=== PATIENT | male | born 1995 | race Two or more races ===

== ENCOUNTER 2023-06-26 09:51 | Emergency (ER) | payer MEDICAID, OTHER ==
[~2023-06-26] VITALS: Ht 188 cm; Wt 152.5 kg
[2023-06-26 10:40] VITALS: BP 153/99; PULSE 75; RESP 14; O2SAT 96
[2023-06-26] MEDS ORDERED: NAPR-746 PO (11:00)
[2023-06-26] MEDS ORDERED: AUG875T PO (11:00)
[2023-06-26] MEDS: cefTRIAXone SOD 1,000 MG VL IM ONE (11:26)
== END 2023-06-26 12:13 | disposition home or self-care (01) ==
LOC: ER 09:51
DX: S60.464A Insect bite (nonvenomous) of right ring finger, initial encounter (principal); Z79.899 Other long term (current) drug therapy; W57.XXXA Bitten or stung by nonvenomous insect and other nonvenomous arthropods, initial encounter; Y93.89 Activity, other specified; Y92.89 Other specified places as the place of occurrence of the external cause; Y99.8 Other external cause status
CPT/HCPCS: 96372; 99283; J0696

== ENCOUNTER 2023-12-26 05:04 | Inpatient (IN) | payer MEDICAID ==
[2023-12-26] VITALS (8 sets, daily range): BP systolic 128–145; BP diastolic 62–80; PULSE 79–95; RESP 13–20; TEMP 97.7–98.6; O2SAT 0–98
[~2023-12-26] VITALS: Ht 188 cm; Wt 150.0 kg
[~2023-12-26 05:04] MED LIST: AUG875T PO; NAPR-746 PO
[2023-12-26 06:34] LABS: Urine Bacteria None Seen /hpf (None Seen)
--- NOTE | 2023-12-26 06:48 | ED.PDOC ---
GI ASSESSMENT HPI Comments 28 y.o male with PMH of anxiety and HTN, presents to the ED for a chief complaint of lower abdominal pain associated with nausea that started today at 0400. Patient reports pain is constant, non radiating, rating an 8/10 on the pain scale but did decrease s/p urinating. Patient reports excessive consumption of soda the past couple of days with minimal water intake. Patient denies any vomiting, diarrhea, fever, chills, chest pain, SOB. Chief Complaint: Abdominal Pain Time Seen by MD: 06:22 Reviewed Notes: Nurses Notes, Medications, Allergies Allergies: Coded Allergies: NO KNOWN ALLERGIES (Unverified , 06/26/23) Home Meds Active Scripts Naproxen (Naproxen) 500 Mg Tab, 500 MG PO BIDPC for 10 Days, #20 TAB 0 Refills Prov:VERENA CLEMENTS NP 06/26/23 Amoxicillin & Pot Clavulanate (AUGMENTIN TABLET) 875 Mg Tb, 875 MG PO BID for 7 Days, #14 TAB 0 Refills Prov:VERENA CLEMENTS NP 06/26/23 Information Source: Patient Mode of Arrival: Ambulatory Timing: Hours Duration: Since onset Quality: Aching Vomitus: None Stool: Normal Severity: Moderate Recent: None Recent Hx of: None Pain Location: Suprapubic Modifying Factors: Nothing Associated sign and symptoms: Nausea, Abdominal Pain Past Medical History PAST MEDICAL HISTORY: Anxiety, HTN Surgical History: Denies all surgeries Family History Family History: Reviewed,noncontributory to illness Social History Smoker: Non-Smoker Alcohol: Denies ETOH Use Drugs: Denies Drug Use Lives In: Home Constitutional: denies: chills, diaphoresis, fatigue, fever, malaise, sweats, weakness, others EENTM: denies: blurred vision, double vision, ear bleeding, ear discharge, ear drainage, ear pain, ear ringing, eye pain, eye redness, hearing loss, mouth pain, mouth swelling, nasal discharge, nose bleeding, nose congestion, nose pain, photophobia, tearing, throat pain, throat swelling, voice changes, others Respiratory: denies: cough, hemoptysis, orthopnea, SOB at rest, shortness of breath, SOB with excertion, stridor, wheezing, others Cardiovascular: denies: chest pain, dizzy spells, diaphoresis, Dyspnea on exertion, edema, irregular heart beat, left arm pain, lightheadedness, palpitations, PND, syncope, others Gastrointestinal: reports: abdominal pain, nausea; denies: abdomen distended, blood streaked bowels, constipated, diarrhea, dysphagia, difficulty swallowing, hematemesis, melena, poor appetite, poor fluid intake, rectal bleeding, rectal pain, vomiting, others Genitourinary: denies: burning, dysuria, flank pain, frequency, hematuria, incontinence, penile discharge, penile sore, pain, testicle pain, testicle swelling, urgency, others Neurological: denies: dizziness, fainting, headache, left sided numbness, left sided weakness, numbness, paresthesia, pre-existing deficit, right sided numbness, right sided weakness, seizure, speech problems, tingling, tremors, weakness, others Musculoskeletal: denies: back pain, gout, joint pain, joint swelling, muscle pain, muscle stiffness, neck pain, others Integumetry: denies: bruises, change in color, change in hair/nails, dryness, laceration, lesions, lumps, rash, wounds, others Allergic/Immunocompromised: denies: Difficulty Healing, Frequent Infections, Hives, Itching, others Hematologic/Lymphatic: denies: anemia, blood clots, easy bleeding, easy bruising, swollen glands, others Endocrine: denies: excessive hunger, excessive sweating, excessive thirst, excessive urination, flushing, intolerance to cold, intolerance to heat, unexplained weight gain, unexplained weight loss, others Psychiatric: denies: anxiety, bipolar disorder, depression, hopeless, panic disorder, schizophrenia, sleepless, suicidal, others All Other Systems: Reviewed and Negative Physical Exam General Appearance: Moderate Distress, Obese HEENT: Normal ENT Inspection, Pharynx Normal, TMs Normal Neck: Full Range of Motion, Non-Tender, Normal, Normal Inspection Respiratory: Chest Non-Tender, Lungs Clear, No Accessory Muscle Use, No Respiratory Distress, Normal Breath Sounds Cardiovascular: No Edema, No JVD, No Murmur, No Gallop, Normal Peripheral Pulses, Regular Rate/Rhythm Breast Exam: Deferred Gastrointestinal: No Organomegaly, Non Tender, No Pulsatile Mass, Normal Bowel Sounds, Soft Genitalia: Deferred Pelvic: Deferred Rectal: Deferred Extremities: No calf tenderness, Normal capillary refill, Normal inspection, Normal range of motion, Non-tender, No pedal edema Musculoskeletal : Apperance: Normal Neurologic: Alert, leasing assistant II-XII nml as Tested, No Motor Deficits, Normal Affect, Normal Mood, No Sensory Deficits Cerebellar Function: Normal Reflexes: Normal Skin: Dry, Normal Color, Warm Peripheral Pulses: 3+ Radial (R), 3+ Radial (L) Lymphatic: No Adenopathy Was a procedure done? Was a procedure done?: No GI differential Dx Differential Diagnosis: Constipation, Diverticular disease, Esophagitis, Gastritis/PUD, Gastroenteritis, UTI, Dehydration, Food Poisoning, Bacterial, Viral, Kidney Stone X-Ray, Labs, Meds, VS Vital Signs Date Time Temp Pulse Resp B/P (MAP) Pulse Ox O2 Delivery O2 Flow Rate FiO2 12/26/23 07:59 98.8 91 18 157/116 (130) 98 98.8 12/26/23 07:16 80 20 0 Room Air* 0 21 12/26/23 06:49 100.2 102 18 157/88 (111) 98 100.2 12/26/23 05:15 99.8 92 18 158/106 (123) 98 Lab Test 12/26/23 07:25 12/26/23 05:18 Range/Units White Blood Count 17.5 H 4.4-10.8 10^3/uL Red Blood Count 5.25 4.5-5.90 10^6/uL Hemoglobin 14.3 13.5-17.5 g/dL Hematocrit 43.5 41.0-53.0 % Mean Corpuscular Volume 82.9 80.0-100.0 fL Mean Corpuscular Hemoglobin 27.3 L 28.0-32.0 pg Mean Corpuscular Hemoglobin Concent 32.9 32.0-36.0 g/dL Red Cell Distribution Width 13.1 11.8-14.3 % Platelet Count 317 140-450 10^3/uL Mean Platelet Volume 8.4 6.9-10.8 fL Neutrophils (%) (Auto) 84.2 H 37.0-80.0 % Lymphocytes (%) (Auto) 8.5 L 10.0-50.0 % Monocytes (%) (Auto) 6.7 0.0-12.0 % Eosinophils (%) (Auto) 0.5 0.0-7.0 % Basophils (%) (Auto) 0.1 0.0-2.0 % Neutrophils # (Auto) 14.7 H 1.6-8.6 10 ^3/uL Lymphocytes # (Auto) 1.5 0.4-5.4 10 ^3/uL Monocytes # (Auto) 1.2 0-1.3 10 ^3/uL Eosinophils # (Auto) 0.1 0-0.8 10 ^3/uL Basophils # (Auto) 0 0-0.2 10 ^3/uL Nucleated Red Blood Cells 0.0 % Sodium Level 140 136-145 mmol/L Potassium Level 4.4 3.5-5.1 mmol/L Chloride Level Pending Carbon Dioxide Level 23 20-31 mmol/L Anion Gap Pending Blood Urea Nitrogen 11 9-23 mg/dL Creatinine 1.11 0.700-1.30 mg/dL Glomerular Filtration Rate Calc 93 >90 mL/min BUN/Creatinine Ratio 9.9 L 10.0-20.0 Serum Glucose 131 H 74-106 mg/dL Calcium Level 10.0 8.7-10.4 mg/dL Urine Color Light-yellow Yellow Urine Clarity Clear Clear Urine pH 5.0 5.0-9.0 Urine Specific [place] 1.019 1.001-1.035 Urine Protein Negative Negative Urine Ketones Negative Negative Urine Blood Negative Negative /uL Urine Nitrite Negative Negative Urine Bilirubin Negative Negative Urine Urobilinogen Normal Negative mg/dL Urine Leukocyte Esterase Negative Negative /uL Urine RBC 1 0 - 3 /hpf Urine WBC <1 0 - 3 /hpf Urine Squamous Epithelial Cells Few <5 /hpf Urine Bacteria None seen None Seen /hpf Urine Glucose Normal Normal mg/dL Current Medications Medications (Trade) Dose Ordered Sig/[facility] Route Start Time Stop Time Status Last Admin Ketorolac Tromethamine (Toradol Injection) 60 mg ONCE ONCE IM 12/26/23 06:45 12/26/23 06:46 DC 12/26/23 06:49 Sodium Chloride 1,000 ml @ 1,000 mls/hr Q1H ONCE IV 12/26/23 07:15 12/26/23 08:14 DC 12/26/23 07:28 Patient alert. Came in because abdominal pain. He has fever. Blood pressure elevated. He is taking his medications. Tachycardia. Establish intravenous access. Was given fluids. Possible colitis. Abdomen is soft. Unable to get a good physical examination. Reviewed his history. Explained to the patient. Continue cardiac monitoring. CT scan of the abdomen reviewed does show appendicitis. Was given cefazolin. Was given Flagyl. Was given pain medication. X-Ray, Labs, Meds, VS Comment Exam: CT CT AB PEL WO CON-NO ORAL OR IV History: LOWER ABDOMINAL PAIN, POSS URINARY RETENTION Comparison Study: None available at time of dictation. TECHNIQUE: Multidetector CT of the abdomen was performed from lung bases to pubic symphysis. Imaging was performed without IV contrast. Axial, coronal and sagittal multiplanar reformats were obtained from the axial data set by the technologist. Radiation Dose Information: CT Dose: CTDI volume is 25 mGy. Dose-length product is 250 mGy*cm FINDINGS: Evaluation of solid organs is limited due to lack of intravenous contrast use. Findings: Lung Bases: No acute or significant lung base finding. Normal heart size. No pleural or pericardial effusion. Liver: The liver is normal in size. No focal lesions. Gallbladder and Biliary Tree: Unremarkable Spleen: Unremarkable Pancreas: The pancreas is grossly normal in appearance. Adrenal Glands: Unremarkable Kidneys: Kidneys are grossly normal without calculi or hydronephrosis. Bladder: Grossly unremarkable for degree of distention. Bowel: The stomach is grossly normal in appearance. Small bowel and colon are normal in caliber and distribution. Appendix measures 14 mm extending from the right lower quadrant past the midline and terminating in the left lower quadrant. Findings compatible with acute appendicitis. There is a punctate appendicolith present. Ascites: Absent Lymphadenopathy: No mesenteric, retroperitoneal or periportal lymphadenopathy. Abdominal Wall and Mesentery: Unremarkable. Vasculature: The visualized abdominal aorta is normal in size and caliber. Evaluation of abdominal and pelvic vessels is limited due to lack of intravenous contrast. Pelvic Organs: Unremarkable Musculoskeletal: No aggressive focal bony lesions, acute fractures or dislocation. Soft tissues: Unremarkable IMPRESSION: Appendix measures 14 mm extending from the right lower quadrant past the midline and terminating in the left lower quadrant. Findings compatible with acute appendicitis. There is a punctate appendicolith present. Time of 1ST Reevaluation: 06:45 Reevaluation 1ST: Unchanged Patient Education/Counseling: Diagnosis, Treatment, Prognosis Family Education/Counseling: No Family Present Departure 1 Departure Time of Disposition: 07:03 Impression: Primary Impression: Acute appendicitis Qualified Codes: K35.80 - Unspecified acute appendicitis Additional Impression: Sepsis Qualified Codes: A41.9 - Sepsis, unspecified organism Disposition: ADMITTED INPATIENT Admit to: Med Surg Condition: Guarded Critical Care Note Critical Care Time?: Yes (90 min-critical care time only) Stability Stability form required: No I personally scribed for MONIQUE REYNOLDS MD ([email or web address]) on 12/26/23 at 06:48. Electronically submitted by Elizabeth Caballero ([facility]). I personally scribed for MONIQUE REYNOLDS MD ([email or web address]) on 12/26/23 at 09:02. Electronically submitted by Elizabeth Caballero ([facility]). MONIQUE REYNOLDS MD Dec 26, 2023 06:48
[2023-12-26] MEDS: KETOROLAC TROMETH 60MG/2ML VIAL IM ONE (06:49)
[2023-12-26 06:57] LABS: Urine Blood Negative /uL (Negative); Urine Clarity Clear (Clear); Urine Color Light-Yellow (Yellow); Urine Protein, UAD Negative (Negative); Urine Specific Gravity 1.019 (1.001-1.035); Urine Urobilinogen Normal (Negative); Urine WBC <1 /hpf (0 - 3)
--- NOTE | 2023-12-26 07:12 | DVH ---
Exam: CT CT AB PEL WO CON-NO ORAL OR IV History: LOWER ABDOMINAL PAIN, POSS URINARY RETENTION Comparison Study: None available at time of dictation. TECHNIQUE: Multidetector CT of the abdomen was performed from lung bases to pubic symphysis. Imaging was performed without IV contrast. Axial, coronal and sagittal multiplanar reformats were obtained fr om the axial data set by the technologist. Radiation Dose Information: CT Dose: CTDI volume is 25 mGy. Dose-length product is 250 mGy*cm FINDINGS: Evaluation of solid organs is limited due to lack of intravenous contrast use. Findings: Lung Bases: No acute or significant lung base finding. Normal heart size. No pleural or pericardial effusion. Liver: The liver is normal in size. No focal lesions. Gallbladder and Biliary Tree: Unremarkable Spleen: Unremarkable Pancreas: The pancreas is grossly normal in appearance. Adrenal Glands: Unremarkable Kidneys: Kidneys are grossly normal without calculi or hydronephrosis. Bladder: Grossly unremarkable for degree of distention. Bowel: The stomach is grossly normal in appearance. Small bowel and colon are normal in caliber and d istribution. Appendix measures 14 mm extending from the right lower quadrant past the midline and te rminating in the left lower quadrant. Findings compatible with acute appendicitis. There is a puncta te appendicolith present. Ascites: Absent Lymphadenopathy: No mesenteric, retroperitoneal or periportal lymphadenopathy. Abdominal Wall and Mesentery: Unremarkable. Vasculature: The visualized abdominal aorta is normal in size and caliber. Evaluation of abdominal a nd pelvic vessels is limited due to lack of intravenous contrast. Pelvic Organs: Unremarkable Musculoskeletal: No aggressive focal bony lesions, acute fractures or dislocation. Soft tissues: Unremarkable IMPRESSION: Appendix measures 14 mm extending from the right lower quadrant past the midline and terminating in t he left lower quadrant. Findings compatible with acute appendicitis. There is a punctate appendicoli th present. Radiation optimization: All CT scans at this facility use at least one of these dose optimization kj hniques: automated exposure control mA and/or kV adjustment per patient size (includes targeted exam s where dose is matched to clinical indication) or iterative reconstruction.
[2023-12-26] MEDS: SODIUM CHLORIDE 0.9% 1,000 ML IV ONE ×3 (07:15→17:22)
[2023-12-26 07:47] LABS: Basophils # (auto) 0 10 ^3/uL (0-0.2); Basophils % (auto) 0.1 % (0.0-2.0); Eosinophils # (auto) 0.1 10 ^3/uL (0-0.8); Eosinophils % (auto) 0.5 % (0.0-7.0); Hematocrit 43.5 % (41.0-53.0); Hemoglobin 14.3 g/dL (13.5-17.5); Lymphocytes # (auto) 1.5 10 ^3/uL (0.4-5.4); Lymphocytes % (auto) 8.5 % (10.0-50.0); Mean Corpuscular Hemoglobin 27.3 pg (28.0-32.0); Mean Corpuscular Hgb Conc. 32.9 g/dL (32.0-36.0); Mean Corpuscular Volume 82.9 fL (80.0-100.0); Monocytes # (auto) 1.2 10 ^3/uL (0-1.3); Monocytes % (auto) 6.7 % (0.0-12.0); Neutrophils # (auto) 14.7 10 ^3/uL (1.6-8.6); Neutrophils % (auto) 84.2 % (37.0-80.0); Platelet Count (auto) 317 10^3/uL (140-450); Red Blood Cells 5.25 10^6/uL (4.5-5.90); Red Cell Distribution Width 13.1 % (11.8-14.3); White Blood Cell 17.5 10^3/uL (4.4-10.8)
[2023-12-26 08:40] LABS: Potassium 4.4 mmol/L (3.5-5.1); Sodium 140 mmol/L (136-145)
[2023-12-26 08:41] LABS: Carbon Dioxide 23 mmol/L (20-31)
[2023-12-26 08:46] LABS: BUN/Creatinine Ratio 9.9 (10.0-20.0); Blood Urea Nitrogen 11 mg/dL (9-23); Glucose 131 mg/dL (74-106)
[2023-12-26] MEDS ORDERED: ceFAZolin 1GM/50ML 50 ML IV ONE (09:15)
[2023-12-26] MEDS ORDERED: metroNIDAZOLE 500MG/100ML 100 ML IV ONE (09:15)
[2023-12-26 09:38] LABS: Anion Gap 11 (5-15); Chloride 106 mmol/L (98-107)
[2023-12-26] MEDS: ONDANSETRON HCL 4 MG/2 ML VIAL IV ONE ×2 (09:54→17:27)
[2023-12-26] MEDS: MORPHINE SULFATE 4 MG/ML SYR/VIAL IV ONE (09:54)
[2023-12-26] MEDS: PIPERACILLIN-TAZOB 3.375GM 100 ML IV ONE (09:54)
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
[2023-12-26] MEDS ORDERED: LIDOCAINE 2% TOPICAL JELLY 5 ML URJT TOP ONE (11:18)
[2023-12-26] MEDS ORDERED: fentaNYL CITRATE 100 MCG/2 ML VL ONE (11:25)
[2023-12-26] MEDS ORDERED: KETAMINE 50mg/ML 1ml syringe ONE (11:25)
[2023-12-26] MEDS ORDERED: GLYCOPYRROLATE 0.2 MG/ML 1ML VIAL ONE (11:26)
[2023-12-26] MEDS ORDERED: DexAMETHasone SOD PHOS 10MG/1ML VIAL INJ ONE (11:26)
[2023-12-26] MEDS ORDERED: SUGAMMADEX 200mg/2ml Vial (100MG/ML) IV ONE (11:26)
[2023-12-26] MEDS ORDERED: KETOROLAC TROMETH 30 MG/ML 1ML VIAL ONE (11:26)
[2023-12-26] MEDS ORDERED: ONDANSETRON HCL 4 MG/2 ML VIAL ONE (11:26)
[2023-12-26] MEDS ORDERED: ROCURONIUM 10MG/ML 10ML VIAL IV ONE (11:26)
[2023-12-26] MEDS ORDERED: PROPOFOL 10 MG/ML 20 ML IV ONE ×2 (11:26→12:14)
[2023-12-26] MEDS: LIDOCAINE 2%HCL (LOCAL ANESTH.) INJ 10ml MDV ONE (11:29)
[2023-12-26] MEDS: ACETAMINOPHEN IV 1000 MG/100ML (10MG/ML) IV ONE (11:45)
[2023-12-26] MEDS: GABAPENTIN 400 MG CAP PO ONE (11:45)
[2023-12-26] MEDS: CELECOXIB 100 MG CAP PO ONE (11:45)
[2023-12-26] MEDS ORDERED: ceFAZolin 1GM VL ONE (12:15)
[2023-12-26] MEDS ORDERED: ePHEDrine SULFATE 50 MG/ML AMP ONE (12:40)
[2023-12-26] MEDS: LIDOCAINE W/ EPINEPHRINE 1% 20ML VIAL ONE (12:59)
--- NOTE | 2023-12-26 13:35 | DVHOP2 ---
Operative Report - 2 Report Details Date: 12/26/23 Preop Diagnosis: Acute appendicitis Postop Diagnosis: Same Surgeon: Emanuel Campbell MD Audio Visual Coordinator: None Anesthesiologist: Kailash Johnson CRNA Anesthesia: General, Mac Drains: None Consent: The surgery and its risks including but not limited to infection, bleeding requiring possible blood transfusion with the risk of hepatitis or HIV infection, open surgery, possible perioperative PA or stroke were explained to the patient. All questions were answered to his satisfaction. He expressed verbal understanding and wished to proceed with the surgery. Complications: None Estimated Blood Loss: 50 mL Fluids: 1200 mL Name of Procedure Performed Laparoscopic appendectomy Procedure Details Procedure Details: After induction of general anesthesia, patient's abdomen was prepped and draped in standard surgical fashion. A small infraumbilical incision was made and this incision was taken through the abdominal wall down to the fascia which was opened sharply. Peritoneum was then bluntly divided gaining access to the in tra-abdominal cavity. Interrupted 0 Vicryl sutures were placed through the fascial incision and using an open technique, Hiren trocar was introduced and secured using the Vicryl sutures. Abdomen was insufflated to 15 mmHg and camera was inserted. Visual examination of the intestine under the fascial incision appeared normal without injury. Under direct visualization, a 5 mm bladeless trocar was placed in the left lower quadrant and a 2nd 5 mm bladeless trocar was placed in the suprapubic region both under direct visualization. Examination of the right lower quadrant revealed a very long and inflamed appendix without perforation. Endovascular stapler was used to divide the mesoappendix up to the base of the appendix. The base of the appendix was then stapled and divided using a regular endo stapler. Specimen was then removed from the abdominal cavity using an endo pouch bag and sent off the surgical field. There was bleeding from the staple line which was controlled using 5 mm Endoclips. There was small amount of serosanguineous fluid collected in the pelvis and this was aspirated. Pelvic area was then well irrigated until fluid was clear. Attention was turned back towards the staple line which appeared intact without bleeding. Trocars were then removed under direct visualization as the abdomen was deflated. Additional interrupted 0 Vicryl sutures were placed through the infraumbilical fascial incision and the sutures were tied down closing off the infraumbilical fascia. Surgical sites were irrigated injected with 20 mL of 1% lidocaine with epinephrine. Skin incisions were closed using 4-0 Monocryl sutures in subcuticular fashion. Surgical sites were cleaned and dried and dressings were applied. Sponge, needle, instrument count at the end of the case were reported to be correct by the nursing staff. The patient tolerated procedure well and was awake, extubated and transferred to recovery in stable condition. Specimen: Appendix Condition Stable Disposition Still a Patient EMANUEL CAMPBELL MD Dec 26, 2023 13:35
[2023-12-26] MEDS ORDERED: fentaNYL CITRATE 100 MCG/2 ML VL IV PRN (13:45)
[2023-12-26] MEDS ORDERED: ONDANSETRON HCL 4 MG/2 ML VIAL IV PRN (13:45)
[2023-12-26] MEDS ORDERED: NALOXONE HCL 0.4 MG/ML VIAL IV PRN (13:45)
[2023-12-26] MEDS ORDERED: oxyCODONE HCL 5MG TAB PO PRN (13:45)
[2023-12-26] MEDS ORDERED: hydrALAZINE HCL 20 MG/ML VL IV PRN (13:45)
[2023-12-26] MEDS ORDERED: FLUMAZENIL 0.1 MG/ML INJ 10ML MDV IV PRN (13:45)
[2023-12-26] MEDS ORDERED: HYDROmorphone HCL 2 MG/ML VL/or syr IV PRN (13:45)
[2023-12-26] MEDS ORDERED: ePHEDrine SULFATE 50 MG/ML AMP IV PRN (13:45)
[2023-12-26] MEDS: MORPHINE SULFATE INJ 2 MG/ml SYRG IV SCH (14:00)
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
[2023-12-26] MEDS: PIPERACILLIN-TAZOB 3.375GM 100 ML IV SCH (17:22)
[2023-12-26] MEDS: ACETAMINOPHEN/CODEINE#3 (300/30mg) TAB PO PRN (17:23)
[2023-12-27] VITALS (7 sets, daily range): BP systolic 117–137; BP diastolic 59–72; PULSE 75–91; RESP 16–19; TEMP 98–99.1; O2SAT 92–100
[2023-12-27 07:42] LABS: Chloride 109 mmol/L (98-107); Potassium 4.1 mmol/L (3.5-5.1); Sodium 142 mmol/L (136-145)
[2023-12-27 07:43] LABS: Anion Gap 9 (5-15); Calcium 9.8 mg/dL (8.7-10.4); Carbon Dioxide 24 mmol/L (20-31)
[2023-12-27 07:48] LABS: BUN/Creatinine Ratio 10.3 (10.0-20.0); Blood Urea Nitrogen 10 mg/dL (9-23); Glucose 129 mg/dL (74-106)
[2023-12-27 07:54] LABS: Basophils # (auto) 0 10 ^3/uL (0-0.2); Basophils % (auto) 0.2 % (0.0-2.0); Eosinophils # (auto) 0 10 ^3/uL (0-0.8); Hematocrit 39.5 % (41.0-53.0); Lymphocytes # (auto) 1.6 10 ^3/uL (0.4-5.4); Lymphocytes % (auto) 10.5 % (10.0-50.0); Mean Corpuscular Hemoglobin 27.1 pg (28.0-32.0); Mean Corpuscular Volume 82.1 fL (80.0-100.0); Monocytes # (auto) 1.1 10 ^3/uL (0-1.3); Monocytes % (auto) 7.6 % (0.0-12.0); Neutrophils # (auto) 12.2 10 ^3/uL (1.6-8.6); Neutrophils % (auto) 81.7 % (37.0-80.0); Nucleated Red Blood Cells % 0.1 %; Platelet Count (auto) 296 10^3/uL (140-450); Red Blood Cells 4.81 10^6/uL (4.5-5.90); Red Cell Distribution Width 13.2 % (11.8-14.3); White Blood Cell 14.9 10^3/uL (4.4-10.8)
[2023-12-27 08:10] LABS: Platelet Estimate Adequate; RBC Morphology Normal
--- NOTE | 2023-12-27 12:44 | DVHPN2 ---
Reviewed: Care Plan, H&P, Labs, Medications, Previous Orders, Radiology Changes from previous H/P or p: No Changes Eyes: No Pain, No Vision change, No Conjunctivae inflammation, No Eyelid inflammation, No Other, No Redness ENT: No Ear pain, No Ear discharge, No Nose pain, No Nose discharge, No Nose congestion, No Mouth pain, No Mouth swelling, No Throat pain, No Throat swelling, No Other Cardiovascular: No Chest Pain, No Palpitations, No Orthopnea, No Paroxysmal Noc. Dyspnea, No Edema, No Lt Headedness, No Other Respiratory: No Cough, No Dry, No Shortness of breath, No SOB with excertion, No Wheezing, No Hemoptysis, No Pleuritic Pain, No Sputum, No Other Gastrointestinal: Nausea; No Vomiting; Abdominal Pain; No Diarrhea, No Constipation, No Melena, No Hematochezia, No Other Genitourinary: No Dysuria, No Frequency, No Incontinence, No Hematuria, No Retention, No Other Musculoskeletal: No other, No neck pain, No shoulder pain, No arm pain, No back pain, No hand pain, No leg pain, No foot pain Skin: No Rash, No Lesions, No Jaundice, No Bruising, No Other Objective Vitals Vital Signs Date Time Temp Pulse Resp B/P (MAP) Pulse Ox O2 Delivery O2 Flow Rate FiO2 12/27/23 09:00 98.1 91 16 124/60 (81) 93 98.1 12/27/23 08:00 Room Air* 0 21 Intake/Output Intake and Output 12/27/23 07:00 Intake Total 970 ml Output Total 800 ml Balance 170 ml Intake Oral 450 ml IV Total 520 ml Output Urine Total 800 ml # Voids 2 Medications Current Medications Medications Dose Ordered Sig/Felix Route Start Time Stop Time Status Last Admin Dose Admin Piperacillin Sod/ Tazobactam Sod 100 ml @ 100 mls/hr Q8HR IV 12/26/23 14:00 12/27/23 05:09 100 MLS/HR Morphine Sulfate 2 mg Q4HPRN IV 12/26/23 14:00 12/27/23 05:09 2 MG Acetaminophen/ Codeine Phosphate 1 tab Q6HPRN PRN PO 12/26/23 13:30 12/26/23 17:23 1 TAB Laboratory Results Laboratory Tests 12/27/23 06:49 Chemistry Test 12/27/23 06:49 Calcium Level 9.8 mg/dL (8.7-10.4) Urinalysis Test 12/26/23 05:18 Urine Color Light-yellow (Yellow) Urine Clarity Clear (Clear) Urine pH 5.0 (5.0-9.0) Urine Specific [place] 1.019 (1.001-1.035) Urine Protein Negative (Negative) Urine Ketones Negative (Negative) Urine Blood Negative /uL (Negative) Urine Nitrite Negative (Negative) Urine Bilirubin Negative (Negative) Urine Urobilinogen Normal mg/dL (Negative) Urine Leukocyte Esterase Negative /uL (Negative) Urine RBC 1 /hpf (0 - 3) Urine WBC <1 /hpf (0 - 3) Urine Squamous Epithelial Cells Few /hpf (<5) Urine Bacteria None seen /hpf (None Seen) Urine Glucose Normal mg/dL (Normal) Labs and/or images reviewed: Labs reviewed by me, Image(s) reviewed by me Assessment/Plan Assessment/Plan Acute abdominal pain Acute appendicitis status post laparoscopic appendectomy by surgeon Dr. Adamson on 12/26/23 continue Zosyn Acute dehydration: IV fluids Advance diet as tolerated Plan discussed with: Patient Date of Service: Dec 27, 2023 Billing Provider: VIOLA SERRANO MD Common Visit Codes: [id number] INP/OBS CARE(HIGH) VIOLA SERRANO MD Dec 27, 2023 12:44
--- NOTE | 2023-12-27 16:33 | DVHPN2 ---
Progress Note - Dictate Date Seen: Dec 27, 2023 Medical Necessity Reason Pt with a Central, PICC or Fol: No Subjective E: no major events o/n. doing better. arabella clear liquid diet. vital signs Vital Sign Date Time Temp Pulse Resp B/P (MAP) Pulse Ox O2 Delivery O2 Flow Rate FiO2 12/27/23 13:42 99.1 91 16 129/59 (82) 100 99.1 12/27/23 08:00 Room Air* 0 21 Total Intake and Output 12/26/23 12/26/23 12/27/23 15:00 23:00 07:00 Intake Total 200 ml 320 ml 450 ml Output Total 800 ml Balance 200 ml 320 ml -350 ml medications Current Medications Medications Dose Ordered Sig/Felix Route Start Time Stop Time Status Last Admin Dose Admin Piperacillin Sod/ Tazobactam Sod 100 ml @ 100 mls/hr Q8HR IV 12/26/23 14:00 12/27/23 13:35 100 MLS/HR Morphine Sulfate 2 mg Q4HPRN IV 12/26/23 14:00 12/27/23 05:09 2 MG Acetaminophen/ Codeine Phosphate 1 tab Q6HPRN PRN PO 12/26/23 13:30 12/27/23 13:34 1 TAB objective GEN: NAD ABD: surgical dressings clean and dry laboratory and microbiology Laboratory Tests 12/27/23 06:49 Test 12/27/23 06:49 Range/Units Serum Glucose 129 H 74-106 mg/dL Assessment/Plan A: 1. s/p lap appendectomy POD #1 improving. P: 1. ok for DC home with oral abx (augmentin bid x 5 days) 2. f/u in clinic on 01/06. Plan discussed with: Patient EMANUEL CAMPBELL MD Dec 27, 2023 16:33
[2023-12-28 05:00] VITALS: BP 143/68; PULSE 70; RESP 19; TEMP 98.2; O2SAT 96
[2023-12-28 08:00] VITALS: PULSE 89; RESP 20
[2023-12-28 09:00] VITALS: BP 135/61; PULSE 87; RESP 20; TEMP 98.6; O2SAT 97
--- NOTE | 2023-12-28 10:36 | DVHPN2 ---
Reviewed: Care Plan, H&P, Labs, Medications, Previous Orders, Radiology Changes from previous H/P or p: No Changes Eyes: No Pain, No Vision change, No Conjunctivae inflammation, No Eyelid inflammation, No Other, No Redness ENT: No Ear pain, No Ear discharge, No Nose pain, No Nose discharge, No Nose congestion, No Mouth pain, No Mouth swelling, No Throat pain, No Throat swelling, No Other Cardiovascular: No Chest Pain, No Palpitations, No Orthopnea, No Paroxysmal Noc. Dyspnea, No Edema, No Lt Headedness, No Other Respiratory: No Cough, No Dry, No Shortness of breath, No SOB with excertion, No Wheezing, No Hemoptysis, No Pleuritic Pain, No Sputum, No Other Gastrointestinal: Nausea; No Vomiting; Abdominal Pain; No Diarrhea, No Constipation, No Melena, No Hematochezia, No Other Genitourinary: No Dysuria, No Frequency, No Incontinence, No Hematuria, No Retention, No Other Musculoskeletal: No other, No neck pain, No shoulder pain, No arm pain, No back pain, No hand pain, No leg pain, No foot pain Skin: No Rash, No Lesions, No Jaundice, No Bruising, No Other Objective Vitals Vital Signs Date Time Temp Pulse Resp B/P (MAP) Pulse Ox O2 Delivery O2 Flow Rate FiO2 12/28/23 09:00 98.6 87 20 135/61 (85) 97 98.6 12/27/23 20:00 Room Air* 0 21 Intake/Output Intake and Output 12/28/23 07:00 Intake Total 2030 ml Balance 2030 ml Intake Oral 1730 ml IV Total 300 ml # Voids 4 Medications Current Medications Medications Dose Ordered Sig/Felix Route Start Time Stop Time Status Last Admin Dose Admin Piperacillin Sod/ Tazobactam Sod 100 ml @ 100 mls/hr Q8HR IV 12/26/23 14:00 12/28/23 05:48 100 MLS/HR Morphine Sulfate 2 mg Q4HPRN IV 12/26/23 14:00 12/28/23 05:50 2 MG Acetaminophen/ Codeine Phosphate 1 tab Q6HPRN PRN PO 12/26/23 13:30 12/27/23 13:34 1 TAB Laboratory Results Laboratory Tests 12/27/23 06:49 Urinalysis Test 11/14/24 05:18 Urine Color Light-yellow (Yellow) Urine Clarity Clear (Clear) Urine pH 5.0 (5.0-9.0) Urine Specific [place] 1.019 (1.001-1.035) Urine Protein Negative (Negative) Urine Ketones Negative (Negative) Urine Blood Negative /uL (Negative) Urine Nitrite Negative (Negative) Urine Bilirubin Negative (Negative) Urine Urobilinogen Normal mg/dL (Negative) Urine Leukocyte Esterase Negative /uL (Negative) Urine RBC 1 /hpf (0 - 3) Urine WBC <1 /hpf (0 - 3) Urine Squamous Epithelial Cells Few /hpf (<5) Urine Bacteria None seen /hpf (None Seen) Urine Glucose Normal mg/dL (Normal) Labs and/or images reviewed: Labs reviewed by me, Image(s) reviewed by me ( ) Assessment/Plan Assessment/Plan Acute abdominal pain Acute appendicitis status post laparoscopic appendectomy by surgeon Dr. Adamson on 12/26/23 continue Zosyn Acute dehydration: IV fluids Tolerating regular diet Cleared for discharge by the surgeon Plan discussed with: Patient My Orders Orders - VIOLA SERRANO MD Procedure Category Date Status Time Advance Diet As MAXWELL 12/27/23 In Process Tolerated 12:44 Mechanical Soft Diet DIET 12/27/23 Transmitted Dinner Date of Service: Dec 28, 2023 Billing Provider: VIOLA SERRANO MD Common Visit Codes: [id number] INP/OBS CARE(HIGH) VIOLA SERRANO MD Dec 28, 2023 10:36
--- NOTE | 2023-12-28 10:39 | DVHDS2 ---
Discharge Summary Date of Admission Dec 26, 2023 at 14:21 Date of Discharge: Dec 28, 2023 Admitting Diagnosis Acute appendicitis Wounds: Laparoscopic appendectomy Labs/Diagnostic Data: Laboratory Results Test 12/27/23 06:49 12/26/23 05:18 White Blood Count 14.9 10^3/uL (4.4-10.8) Red Blood Count 4.81 10^6/uL (4.5-5.90) Hemoglobin 13.0 g/dL (13.5-17.5) Hematocrit 39.5 % (41.0-53.0) Mean Corpuscular Volume 82.1 fL (80.0-100.0) Mean Corpuscular Hemoglobin 27.1 pg (28.0-32.0) Mean Corpuscular Hemoglobin Concent 33.0 g/dL (32.0-36.0) Red Cell Distribution Width 13.2 % (11.8-14.3) Platelet Count 296 10^3/uL (140-450) Mean Platelet Volume 9.2 fL (6.9-10.8) Neutrophils (%) (Auto) 81.7 % (37.0-80.0) Lymphocytes (%) (Auto) 10.5 % (10.0-50.0) Monocytes (%) (Auto) 7.6 % (0.0-12.0) Eosinophils (%) (Auto) 0.0 % (0.0-7.0) Basophils (%) (Auto) 0.2 % (0.0-2.0) Neutrophils # (Auto) 12.2 10 ^3/uL (1.6-8.6) Lymphocytes # (Auto) 1.6 10 ^3/uL (0.4-5.4) Monocytes # (Auto) 1.1 10 ^3/uL (0-1.3) Eosinophils # (Auto) 0 10 ^3/uL (0-0.8) Basophils # (Auto) 0 10 ^3/uL (0-0.2) Nucleated Red Blood Cells 0.1 % Platelet Estimate Adequate Clumped Platelets Few Red Blood Cell Morphology Normal Sodium Level 142 mmol/L (136-145) Potassium Level 4.1 mmol/L (3.5-5.1) Chloride Level 109 mmol/L (98-107) Carbon Dioxide Level 24 mmol/L (20-31) Anion Gap 9 (5-15) Blood Urea Nitrogen 10 mg/dL (9-23) Creatinine 0.97 mg/dL (0.700-1.30) Glomerular Filtration Rate Calc 110 mL/min (>90) BUN/Creatinine Ratio 10.3 (10.0-20.0) Serum Glucose 129 mg/dL (74-106) Calcium Level 9.8 mg/dL (8.7-10.4) Urine Color Light-yellow (Yellow) Urine Clarity Clear (Clear) Urine pH 5.0 (5.0-9.0) Urine Specific [place] 1.019 (1.001-1.035) Urine Protein Negative (Negative) Urine Ketones Negative (Negative) Urine Blood Negative /uL (Negative) Urine Nitrite Negative (Negative) Urine Bilirubin Negative (Negative) Urine Urobilinogen Normal mg/dL (Negative) Urine Leukocyte Esterase Negative /uL (Negative) Urine RBC 1 /hpf (0 - 3) Urine WBC <1 /hpf (0 - 3) Urine Squamous Epithelial Cells Few /hpf (<5) Urine Bacteria None seen /hpf (None Seen) Urine Glucose Normal mg/dL (Normal) Other Laboratory Tests 12/27/23 06:49 Brief Hx & Hospital Course: Patient admitted for acute appendicitis and underwent laparoscopic appendectomy by surgeon Dr. Adamson. With IV fluids pain medications and antibiotics. Postop course uneventful. Tolerating regular diet afebrile stable vital signs at the time of discharge. Cleared for discharge by surgeon Consults/Reason for consult Surgeon Operations or Procedures Laparoscopic appendectomy Condition at Discharge: Good Final Diagnosis/Problems List Acute abdominal pain Acute appendicitis status post laparoscopic appendectomy by surgeon Dr. Adamson on 12/26/23 continue Zosyn Acute dehydration: IV fluid Discharge Disposition: Home Discharge Instruct/Medications Diet: Regular Activity: Light activity Follow Up/Referral: Follow up with surgeon Dr. Adamson in 10 days Medications: Augmentin 875 mg p.o. b.i.d. five days [place] 5/325 1 q.6 hours p.r.n. 30. Transmitted to pharmacy 36 (Time taken for discharge summary 36 minutes) Discharge Statement: "Patient was advised to return to the ER or call 911 if any headaches, dizziness, shortness of breath, chest pain, abdominal pain, bleeding, fevers, or worsening of medical condition. Patient was counseled about treatment plan, medications, possible side effects, patientverbalized understanding. All questions were answered to the best of my ability. This discharge took greater then 30 minutes in planning, reviewing documentation, counseling the patient, and discussing with other team members." ASSESSMENT ASSESSMENT Hospital Course Improved Assessment Acute abdominal pain Acute appendicitis status post laparoscopic appendectomy by surgeon Dr. Adamson on 12/26/23 continue Zosyn Acute dehydration: IV fluid Date of Service: Dec 28, 2023 Billing Provider: VIOLA SERRANO MD Common Visit Codes: [id number] DISCH DAY >30min VIOLA SERRANO MD Dec 28, 2023 10:39
[2023-12-28] MEDS ORDERED: AUG875T PO (10:42)
[2023-12-28] MEDS ORDERED: ACE3T PO (10:42)
[2023-12-28 11:20] VITALS: BP 140/85; PULSE 89; RESP 16; TEMP 97.7; O2SAT 98
[2023-12-28 13:00] VITALS: BP_SYST 135; BP_SYST 169; BP_DIAS 100; BP_DIAS 61; PULSE 86; PULSE 87; RESP 20; TEMP 98; TEMP 98.6; O2SAT 97; O2SAT 98
== END 2023-12-28 13:30 | disposition home or self-care (01) | DRG 234 ==
LOC: ER 05:04 → OVERFLOW 14:21 → WEST WING 14:22
PROVIDERS: ADMIT Registered Nurse General Practice; ATTEND Family Medicine
PROC: 0DTJ4ZZ Resection of Appendix, Percutaneous Endoscopic Approach (ICD-10-PCS; principal; 2023-12-26 12:13)
DX: K35.80 Unspecified acute appendicitis (principal); E66.01 Morbid (severe) obesity due to excess calories; E86.0 Dehydration; I10 Essential (primary) hypertension; Z79.899 Other long term (current) drug therapy; Z68.41 Body mass index [BMI] 40.0-44.9, adult
CPT/HCPCS: 36415; 74176; 80048; 81001; 85025; 96365; 96375; 99291; G0378; J0131; J0690; J1100; J1885; J2003; J2405; J2543; J2704